=== PATIENT | female | born 1980 | race Caucasian/White ===

== ENCOUNTER 2024-11-09 16:28 | Inpatient (IN) | payer BC, SELFPAY ==
[2024-11-09] MEDS: Nicotine 21 MG PATCH.TD24 TRANSDERMA (17:36)
[2024-11-09] MEDS: Nicotine Polacrilex 2 MG GUM 4 MG BUCCAL ×2 (17:37→20:27)
[2024-11-09] MEDS: Gabapentin 300 MG CAPSULE PO ×2 (18:14→21:33)
[2024-11-09] MEDS: Baclofen 10 MG TABLET PO ×2 (18:14→21:34)
--- NOTE | 2024-11-09 18:29 | PC.ADMIT ---
Kia arrived via stretcher from [facility]. (she is from [place]) She has been boarding in the ED since 11/02/24. She was biba from her sober house after drinking whiskey and getting into arguments with the other residents and reportedly hearing voices. Upon arrival here she is oriented x4, had an irritable edge but was cooperative with skin/safety check. Check was unremarkable. She doesn't feel like she needs to be here at all. She is animated and talkative. Irritable about rules, especially the nonsmoking rule. what are you all trying to do to folks here? While with Dr Sanchez, she did refuse to sign in, denied most of the details in the ED report from [facility], prior to be kicked out of the sober house she reports only using extra gabapentin and baclofen. It made me feel some way that was good, and then they kicked me out . She vigorously offered the name of her addiction counselor Artem Lopez, signed a release for him and requested Dr Sanchez call him. He knows me, all about me, he will vouch for me. She denies any urges to harm self or others and any visual or perceptual disturbances. She vapes nicotine probably the equivalent of 1 ppd. She requests NRT but refused [employer]. She denies any alcohol use since june 2024 and no illicit drug use. She denies any health issues, reports having ADHD. Shortly after Dr Sanchez left the room, she said I want to sign in so I can sign that 3 day thing , this nurse notified Dr Sanchez but he was gone for the day. She is on 15 minute safety checks.
[2024-11-09 20:00] VITALS: BP 121/80; PULSE 105; TEMP 36.4; O2SAT 97
[2024-11-09] MEDS: Propranolol HCL 10 MG TABLET PO (21:34)
[2024-11-09] MEDS: busPIRone HCl 10 MG TABLET PO (21:35)
--- NOTE | 2024-11-09 21:51 | P.CONHOSP_ITS ---
History of Present Illness Data of Consult Service Date: 11/09/24 Requesting physician: Tobias Sanchez Primary Care Provider: Unknown Physician HPI Reason for consult: admission H&P patient is a 44-year-old female originally resides in [place] and was sent to [place] for detox and recovery from alcohol abuse and has been here for 4 months. Patient's past medical history includes tobacco dependence via vaping, alcohol abuse, all vaginal deliveries, fair dentition with a missing root canal in a back molar currently asymptomatic, carpal tunnel syndrome was transferred to [facility] from [facility] after being in a sober house and having a relapse with her alcohol use. patient noted to have a heart rate anywhere from 100-105. Patient states she has been told that she has had a higher heart rate and wonders why. Patient does not have a history of thyroid disorders or cardiac arrhythmias. Patient denies history of murmur. Patient denies current withdrawal symptoms from alcohol. Her last drink was 1 month prior.Patient's particular medical complaints include a persistent dry cough and raspiness or congestion which has improved since patient has stopped vaping. Patient is currently on nicotine replacement therapy. Lung sounds are clear bilaterally to auscultation. Patient denies any sore throat, fever, headache, shortness of breath at rest or with exertion. Patient has not been taking her Claritin and feels this will help her symptoms. Labs are scheduled in the morning and CBC has been added. TSH with reflex already ordered. Will order chest x-ray for baseline noting patient's complaints of congestion and persistent cough with history of nicotine use via vaping. Review of Systems Review of Systems: patient denies any chest pain, shortness of breath at rest or with exertion. Patient denies any abdominal pain, nausea or vomiting. Patient denies any withdrawal symptoms from alcohol use. Patient states her upper respiratory symptoms are improved since she stopped vaping. Patient still has an intermi ttent dry cough. Patient is also having upper nasal congestion which is mild. Patient denies fever, chills or sore throat. Patient denies any issues with constipation or diarrhea. Patient's appetite is healthy and she denies any unexplained weight loss. Patient denies history of eating disorder as well. [facility] Medical History (Updated 11/09/24 @ 22:19 by LILY Lowery) Allergic rhinitis ADHD Alcohol abuse Tobacco dependence Carpal tunnel syndrome Cognitive capacity: Alert and orientated x3 Functional capacity: independent ambulation Patient : No Social History Household Members: Unknown / Unable to assess Housing: Other Do you presently have visiting nurse or other home services: No Patient Tobacco Use Status: Former Tobacco user e-Cigarette/Vaping Use: Currently Using Second Hand Smoke Exposure: Yes Ebola Risk: Travel/Contact With Anyone From Affected Area/s: No Has Patient Experienced Ebola Symptoms: No Meds Allergies Allergy/AdvReac Type Severity Reaction Status Date / Time No Known Allergies Allergy Verified 11/09/24 17:21 Active Medications: Current Medications Acetaminophen (Acetaminophen 325 Mg Tablet) 650 mg PO Q6H PRN PRN Reason: Headache/Pain, Scale 1-10 Al Hydroxide/Mg Hydroxide (Magnesium Hydrox/Alum Hydrox 30 Ml Oral.Susp) 30 ml PO Q6H PRN PRN Reason: Heartburn/Nausea Baclofen (Baclofen 10 Mg Tablet) 10 mg PO BID FOR[facility]LY [facility], [facility] Last Admin: 11/09/24 21:34 Dose: 10 mg Buspirone HCl (Buspirone Hcl 10 Mg Tablet) 10 mg PO BID FOR[facility], [facility] Last Admin: 11/09/24 21:35 Dose: 10 mg Gabapentin (Gabapentin 300 Mg Capsule) 300 mg PO TID FOR[facility], [facility] Last Admin: 11/09/24 21:33 Dose: 300 mg Hydroxyzine HCl (Hydroxyzine Hcl 25 Mg Tablet) 25 mg PO Q6H PRN PRN Reason: mild anxiety Magnesium Hydroxide (Milk Of Magnesia 30 Ml Oral.Susp) 30 ml PO DAILY PRN PRN Reason: Constipation Nicotine (Nicotine 21 Mg Patch.Td24) 21 mg TRANSDERMA DAILY PRN PRN Reason: smoking cessation Last Admin: 11/09/24 17:36 Dose: 21 mg Nicotine Polacrilex (Nicotine Polacrilex 2 Mg Gum) 4 mg BUCCAL Q2H PRN PRN Reason: Nicotine Cravings Last Admin: 11/09/24 20:27 Dose: 4 mg Olanzapine (Olanzapine 5 Mg Tablet) 5 mg PO TID PRN PRN Reason: agitation Propranolol HCl (Propranolol Hcl 10 Mg Tablet) 10 mg PO TID FOR[facility], [facility]; Protocol Last Admin: 11/09/24 21:34 Dose: 10 mg Trazodone HCl (Trazodone Hcl 50 Mg Tablet) 50 mg PO BEDTIME MRX1 PRN PRN Reason: Insomnia Home Medications ?Medication ?Instructions ?Recorded ?Confirmed ?Last Taken ?Type baclofen 10 mg tablet 10 mg PO TID 11/09/24 11/09/24 11/09/24 08:48 History buspirone 10 mg tablet 10 mg PO BID 11/09/24 11/09/24 Unknown History hydroxyzine pamoate 25 mg capsule 25 mg PO BID PRN Anxiety 11/09/24 11/09/24 Unknown History lisdexamfetamine 40 mg capsule 40 mg PO DAILY 11/09/24 11/09/24 Unknown History (Jaspal) nicotine (polacrilex) 2 mg gum 2 mg buccal Q1H 11/09/24 11/09/24 11/09/24 09:38 History olanzapine 5 mg disintegrating 5 mg PO Q6H PRN Agitation 11/09/24 11/09/24 11/08/24 19:53 History tablet olanzapine 5 mg disintegrating 5 mg PO BEDTIME 11/09/24 11/09/24 11/08/24 19:53 History tablet (Zyprexa Zydis) propranolol 10 mg tablet 10 mg PO TID 11/09/24 11/09/24 11/09/24 08:48 History quetiapine 300 mg tablet (Seroquel) 300 mg PO BEDTIME 11/09/24 11/09/24 Unknown History Physical Exam Vital Signs and Narrative: Vital Signs: Last Vital Signs Temp 97.5 F 11/09/24 20:00 Pulse 105 H 11/09/24 20:00 BP 121/80 11/09/24 20:00 Pulse Ox 97 11/09/24 20:00 O2 Del Method Room Air 11/09/24 20:00 Alert and orientated X3, able to give good history. Patient found it slightly difficult to stay sitting, was moving often during the interview. Neuro: CN II-X11 intact, no deficits, visual acuity intact EYES: PERRLA, EOM intact, Conjunctiva pink, sclera nonicteric ENT: hearing intact, no issues with swallowing, uvula midline, lips moist, nares patent no epistaxis, no thrush, oral pharyngeal airway without exudate or redness. sinuses nontender. Cardiac: S1 S2 RRR, no murmur, no JVD, no edema in Lower ext Pulmonary: lungs Diminished at the bases, no adventitious sounds noted. no stridor or wheezing heard Abdominal: BS active in all 4 quadrants, no guarding, tenderness, rebounding MSK: strength 5/5 upper and lower extremities : no CVA tenderness no bladder distension Extremities: no edema in lower extremities, PT and DP pulses palpable +2 Psych: mood mildly anxious, judgement and insight good skin: intact Results ECG Prior ECG tracings: not available for review Assessment and Plan (1) Tachycardia: Status: Acute Plan Patient is a 44-year-old female originally resides in [place] and was sent to [place] for detox and recovery from alcohol abuse and has been here for 4 months. Patient's past medical history includes tobacco dependence via vaping, chronic cough, alcohol abuse, allergic rhinitis, all vaginal deliveries, fair dentition with a missing root canal in a back molar currently asymptomatic, carpal tunnel syndrome Tachycardic - EKG pending - TSH with reflex. Magnesium pending - Vital signs otherwise stable - Patient denies any current chest pain or symptoms. - Patient has been told for some time that her heart rate is usually above 100. - Apical rate is regular, no murmur on exam - hospitalist group will follow up tomorrow on EKG and labs - patient does not require telemetry or transfer to [facility] Tobacco dependence/ vaping with chronic cough and congestion - Nicotine replacement therapy in place - Completing chest x-ray in the a.m. for noted persistent cough. No current indication for FLU/RSV/COVID testing - Resuming Claritin to help with congestion if permitted by Psychiatry -Sinus exam negative, low suspicion for sinus infection or pharyngitis - Patient counseled on the continued benefits of vaping/tobacco cessation - guaifenesin cough syrup p.r.n. Allergic rhinitis -Continuing Claritin, psychiatrist to review please DC if not permitted - chest x-ray pending for the morning, no current indication to do flu/RSV /COVID testing History of alcohol abuse - per Psychiatry - recommend thiamine and folic acid daily Carpal tunnel syndrome - chronic condition with report of bilateral hand pain - possible associated osteoarthritis - patient is on gabapentin - adding Motrin 400 mg q.6 p.r.n. for moderate pain - Adding CRP and ESR to a.m. blood work We thank you for this consultation and hospitalist will follow up tomorrow regarding chest x-ray, labs and patient's clinical presentation. It is likely after tomorrow with the hospitalist group will be able to sign off.
[2024-11-09] MEDS: traZODone HCL 50 MG TABLET PO (23:15)
[2024-11-10 08:00] VITALS: BP 109/55; PULSE 76; RESP 16; TEMP 36.6; O2SAT 98
[2024-11-10 08:32] LABS: MANUAL DIFF FLAG NO
[2024-11-10 08:34] LABS: Basophils Absolute Auto 0.1 X10*3/uL (0.0-0.2); Basophils Percent Auto 0.9 % (0-2); Eosinophils Absolute Auto 0.8 X10*3/uL (0.0-0.4); Eosinophils Percent Auto 11.9 % (0-4); Hematocrit 37.3 % (37.0-47.0); Hemoglobin 12.5 g/dl (12.0-16.0); Imm Gran Abs Auto 0.03 X10*3/uL (0.00-0.03); Imm Gran Pct Auto 0.5 % (0.0-0.4); Lymphocytes Absolute Auto 2.2 X10*3/uL (1.2-4.9); Lymphocytes Percent Auto 34.7 % (20-40); Mean Corpuscular HGB Conc 33.5 g/dl (31.0-35.0); Mean Corpuscular Hemoglobin 30.6 pg (27.0-33.0); Mean Corpuscular Volume 91.2 fL (80.0-98.0); Mean Platelet Volume 9.5 fL (9.4-12.3); Monocytes Absolute Auto 0.8 X10*3/uL (0.1-1.2); Monocytes Percent Auto 11.8 % (2-11); Neutrophils Absolute Auto 2.6 x10*3/uL (2.0-8.3); Neutrophils Percent Auto 40.2 % (45-73); Platelet Count 376 X10*3/uL (160-400); Red Blood Count 4.09 X10*6/uL (4.20-5.50); Red Cell Distribution Width 14.8 % (11.0-16.0); White Blood Count 6.4 X10*3/uL (4.8-10.8)
[2024-11-10] MEDS: busPIRone HCl 10 MG TABLET PO ×2 (08:47→20:31)
[2024-11-10] MEDS: Loratadine 10 MG TABLET PO (08:47)
[2024-11-10] MEDS: Gabapentin 300 MG CAPSULE PO ×2 (08:47→13:49)
[2024-11-10] MEDS: Nicotine 21 MG PATCH.TD24 TRANSDERMA (08:48)
[2024-11-10] MEDS: Nicotine Polacrilex 2 MG GUM 4 MG BUCCAL ×3 (08:48→18:03)
[2024-11-10] MEDS: Baclofen 10 MG TABLET PO ×2 (08:49→20:31)
[2024-11-10 08:50] LABS: Estimated Average Glucose 105 mg/dL; Hemoglobin A1C 114.0526 umol/L; Hemoglobin A1c % 5.3 % (<6.0)
[2024-11-10 08:57] LABS: Magnesium 1.9 mg/dL (1.6-2.6)
[2024-11-10 09:00] VITALS: PULSE 72
[2024-11-10 09:04] LABS: Alanine Aminotransferase 24 U/L (0-31); Albumin Level 4.4 g/dL (3.5-5.0); Anion Gap 13 (12-20); Aspartate Amino Transferase 26 U/L (5-31); Bilirubin Total 0.2 mg/dL (0.0-1.0); Blood Urea Nitrogen 16 mg/dL (9-16); Carbon Dioxide 24 mmol/L (22-29); Chloride 106 mmol/L (96-108); Cholesterol 178 mg/dL (<200); Estimated Glomerular Filt Rate > 60; Glucose Random 135 mg/dL (60-115); HDL Cholesterol 64 mg/dL (>40); Potassium 4.5 mmol/L (3.3-5.1); Sodium 138 mmol/L (135-145); Total Protein 7.2 g/dL (6.5-8.0); Triglycerides 130 mg/dL (<150)
[2024-11-10 09:05] LABS: Alkaline Phosphatase 56 U/L (39-117); LDL Cholesterol Calculated 88 mg/dL (<100)
[2024-11-10 09:14] LABS: TSH reflex Free T4 4.38 uIU/mL (0.32-4.0)
[2024-11-10 09:50] LABS: Free T4 (Free Thyroxine) 0.92 ng/dL (0.71-1.85)
[2024-11-10] MEDS: Acetaminophen 325 MG TABLET 650 MG PO (11:15)
--- NOTE | 2024-11-10 11:39 | HO.PSYADMNOT ---
HPI Date of Service: 11/10/24 Chief Complaint: Unspecified psychosis Sources of Information: patient interviewed, chart reviewed and crisis/core team assessment reviewed HPI Subjective Notes: Joe Warning, Conditional Voluntary, 3 Day and Section 12B Narrative: Patient is a 44-year-old female, originally from [place], with history of depression, anxiety, ADHD, methamphetamine and alcohol use disorder who presents for disorganized behavior in the face of abusing baclofen and gabapentin. Pt reports she was at sober living, having been there only 2 days and feeling stressed out; pt reports she was taking more Baclofen and gabapentin then prescribed since it made her feel good. Pt says the TV was on loudly and went down and told peers that it sounds like kids crying...and i need to get to bed... She frustrated that staff reported she said she was hearing kids screaming...no, i was not hearing things or seeing things...i said it sounds like esteves word 'sounds like'... She says it's absurd that she is in the hospital. She denies that she was jumping on the bed or aggressively throwing things; she said maybe she slammed the door but she did not mean to be loud. Patient denies any history of AVH or manic type episodes or behaviors other than in the context of substance abuse. Patient did however acknowledge that perhaps feeling tired, overdosing on baclofen and gabapentin, she may have been more dysregulated and she realize. Patient wants to continue on current medication regimen. Denies trauma history pt seen on 11/09/24 Past Psychiatric History: only hx of hospitalization for detox Medical Evaluation Reviewed: Hospitalist Silver Pending [facility] Medical History (Updated 11/11/24 @ 09:27 by Tobias Sanchez MD) MDD (major depressive disorder) Allergic rhinitis ADHD Alcohol abuse Tobacco dependence Carpal tunnel syndrome Family History: Deferred Social History: 3 kids completed H.S some college from [employer] but came up to [place] to be in a sober living Substance History: Mainly alcohol, daily since last fall and Methamphetamines used to be 3 days a week, however pt has been sober for 4 months; 4 weeks used alcohol for one day... Trauma History: Denies Diagnostics Vital Signs (24Hr): Vital Signs - 24 hr 11/09/24 20:00 Temperature 97.5 F Pulse Rate 105 H Blood Pressure 121/80 Pulse Oximetry 97 Oxygen Delivery Method Room Air Labs 11/10/24 08:16 11/10/24 08:16 Labs: Laboratory Results - last 48 hr 11/10/24 08:16 WBC 6.4 RBC 4.09 L Hgb 12.5 Hct 37.3 MCV 91.2 MCH 30.6 MCHC 33.5 RDW 14.8 Plt Count 376 MPV 9.5 Immature Gran % (Auto) 0.5 H Neut % (Auto) 40.2 L Lymph % (Auto) 34.7 [place] % (Auto) 11.8 H Eos % (Auto) 11.9 H Baso % (Auto) 0.9 Lymph # (Auto) 2.2 [place] # (Auto) 0.8 Eos # (Auto) 0.8 H Baso # (Auto) 0.1 Abs Immat Gran (auto) 0.03 Absolute Neuts (auto) 2.6 Absolute Nucleated RBC 0.000 Nucleated RBC % (auto) 0.0 Sodium 138 Potassium 4.5 Chloride 106 Carbon Dioxide 24 Anion Gap 13 BUN 16 Creatinine 0.62 Estim Creat Clear Calc TNP Estimated GFR > 60 Random Glucose 135 H Estimat Average Glucose 105 Hemoglobin A1c % 5.3 Calcium 9.0 Magnesium 1.9 Total Bilirubin 0.2 AST 26 ALT 24 Alkaline Phosphatase 56 Total Protein 7.2 Albumin 4.4 Triglycerides 130 Cholesterol 178 LDL Cholesterol, Calc 88 HDL Cholesterol 64 TSH 4.38 H Free T4 0.92 Meds/Allergies Meds Home Medications ?Medication ?Instructions ?Recorded ?Confirmed ?Type baclofen 10 mg tablet 10 mg PO TID 11/09/24 11/09/24 History buspirone 10 mg tablet 10 mg PO BID 11/09/24 11/09/24 History hydroxyzine pamoate 25 mg capsule 25 mg PO BID PRN Anxiety 11/09/24 11/09/24 History lisdexamfetamine 40 mg capsule 40 mg PO DAILY 11/09/24 11/09/24 History (Vyvanse) nicotine (polacrilex) 2 mg gum 2 mg buccal Q1H 11/09/24 11/09/24 History olanzapine 5 mg disintegrating 5 mg PO Q6H PRN Agitation 11/09/24 11/09/24 History tablet olanzapine 5 mg disintegrating 5 mg PO BEDTIME 11/09/24 11/09/24 History tablet (Zyprexa Zydis) propranolol 10 mg tablet 10 mg PO TID 11/09/24 11/09/24 History quetiapine 300 mg tablet (Seroquel) 300 mg PO BEDTIME 11/09/24 11/09/24 History Allergies Allergies Allergy/AdvReac Type Severity Reaction Status Date / Time No Known Allergies Allergy Verified 11/09/24 17:21 Mental Status Exam Mental Status Exam Narrative: Pt is alert and oriented; behavior is cooperative, friendly and calm; patient is not in distress; dressed in casual attire with unkempt hair but adequate hygiene; mood is described as ok and affect congruent; eye contact appropriate; Speech is normal rate, volume and prosody and not pressured; no psychomotor agitation/retardation present; thought process is a little disorganized but goal directed; Thought content is on wrongly sent to hospital, getting back to sober living; otherwise pertinent to relevant topics and without any delusional content, paranoid ideations or grandiosity; denies any SI/HI. Denies AVH and there is no evidence of perceptual disturbance. Patients insight and judgment impaired. Assessment & Plan Assessment & Plan (1) Moira: Status: Acute Code(s): F30.9 - Manic episode, unspecified (2) ADHD: Status: Acute Code(s): F90.9 - Attention-deficit hyperactivity disorder, unspecified type (3) Carpal tunnel syndrome: Status: Acute Code(s): G56.00 - Carpal tunnel syndrome, unspecified upper limb (4) MDD (major depressive disorder): Status: Acute Code(s): F32.9 - Major depressive disorder, single episode, unspecified Plan Patient is a 44-year-old female, originally from [place], with history of depression, anxiety, ADHD, methamphetamine and alcohol use disorder who presents for disorganized behavior in the face of abusing baclofen and gabapentin. Pt reports she was at sober living, having been there only 2 days and feeling stressed out; pt reports she was taking more Baclofen and gabapentin then prescribed since it made her feel good. Pt says the TV was on loudly and went down and told peers that it sounds like kids crying...and i need to get to bed... She frustrated that staff reported she said she was hearing kids screaming...no, i was not hearing things or seeing things...i said it sounds like esteves word 'sounds like'... She says it's absurd that she is in the hospital. She denies that she was jumping on the bed or aggressively throwing things; she said maybe she slammed the door but she did not mean to be loud. Patient denies any history of AVH or manic type episodes or behaviors other than in the context of substance abuse. Patient did however acknowledge that perhaps feeling tired, overdosing on baclofen and gabapentin, she may have been more dysregulated and she realize. Patient wants to continue on current medication regimen. Denies trauma history; no recent drug/alcohol use. formulation/clinical reasoning: pt somewhat disorganized in speech, easily confused. Seems that perhaps she got dysregulated due to either excessive baclofen/gabapentin or w/drawal from it...which seems to be winding down at this point. Will treat for w/drawal and monitor Plan: cv q15min restart Baclofen 10mg BID to help with withdrawal BUT will then taper and dc (baclophen was using for used etoh cravings) restart Gabapentin 300mg TID to help w/ withdrawal BUT will taper and dc (Gabapentin for carpal tunnel) restart Zoloft and titrate (this was helping w/ depression/anxiety but recently changed to Cymbalta to cover for neuropathic pain; zoloft restarted in ED) Consider Naltrexone which pt said helped cravings Adderall XR 30mg (vyvanse not on formulary) Continue home med Seroqel 300mg qhs seek collateral Patient educated on: diagnosis, medication risk/benefits and substance abuse Informed Consent: understands and further education needed Reason for continued inpatient stay Substantial Risk for: rapid decompensation Statement Statement: I have reviewed the history and physical and performed a pertinent examination on my patient. No changes have occurred unless specified. If the History and Physical was not performed prior to admission, the Hospitalist's service will be consulted for completing the admission physical. Time Spent With Patient Time: Total time managing care of this patient today ____ minutes.
--- NOTE | 2024-11-10 12:51 | PM.EVENT ---
Event Note Date of Service: 11/10/24 Event Note: Patient was seen for tachycardia, no anemia noted on lab work, Chem panel within normal limits. No further vital signs recorded. If tachycardia persists please notify medical team. Based on overall clinical picture no further workup is warranted at this time. Time Spent With Patient Time: Total time managing care of this patient today ____ minutes.
[2024-11-10] MEDS: Ibuprofen 600 MG TABLET PO (13:45)
[2024-11-10] MEDS: Sertraline HCL 50 MG TABLET PO (13:45)
[2024-11-10 15:09] VITALS: BP 104/58; PULSE 72
[2024-11-10] MEDS: hydrOXYzine HCL 25 MG TABLET PO (15:43)
[2024-11-10 20:00] VITALS: BP 147/87; PULSE 108; RESP 16; TEMP 36.6; O2SAT 98
[2024-11-10] MEDS: QUEtiapine Fumarate 300 MG TABLET PO (20:32)
[2024-11-10] MEDS: Propranolol HCL 10 MG TABLET PO (20:32)
[2024-11-11 07:44] VITALS: BP 106/56; PULSE 93; TEMP 36.5; O2SAT 99
[2024-11-11] MEDS: busPIRone HCl 10 MG TABLET PO ×2 (08:30→20:53)
[2024-11-11] MEDS: Loratadine 10 MG TABLET PO (08:30)
[2024-11-11] MEDS: Sertraline HCL 50 MG TABLET PO (08:30)
[2024-11-11] MEDS: Baclofen 10 MG TABLET PO ×2 (08:31→20:53)
[2024-11-11] MEDS: Gabapentin 300 MG CAPSULE PO ×3 (08:31→20:54)
[2024-11-11] MEDS: Dextroamphetamine/Amphetamine XR 10 MG CAP.ER.24H 30 MG PO (09:42)
[2024-11-11] MEDS: Nicotine 21 MG PATCH.TD24 TRANSDERMA (09:43)
[2024-11-11] MEDS: Nicotine Polacrilex 2 MG GUM 4 MG BUCCAL ×3 (09:43→18:19)
--- NOTE | 2024-11-11 10:39 | HO.PSYCHPN ---
Subjective Subjective Date of Service: 11/11/24 Reason For Visit: Unspecified psychosis Subjective Notes: Conditional Voluntary and 3 Day Interim History: Patient was seen and discussed in rounds today. Records and plans were reviewed. She has been doing better with no depression and anxiety. Attending groups. Some lability reported. Refused gabapentin and states that the Inderal sometimes makes her dizzy. No signs of these this morning. No SI. No changes were made today. Review of Systems Review of Systems Recent reports of dizziness Yes all other systems are reviewed and are negative Mental Status Exam Mental Status Exam Narrative: In today's visit she is alert, oriented and pleasant. Normal speech. Good eye contact. Affect is appropriate and varied. No acute signs of psychosis. No signs of hypomania or lability. No SI. Cognitively intact. Judgment is intact Diagnostics Vital Signs (24Hr): Vital Signs - 24 hr 11/10/24 15:09 11/10/24 20:00 11/11/24 07:44 Temperature 98 F 97.7 F Pulse Rate 72 108 H 93 Respiratory Rate 16 Blood Pressure 104/58 L 147/87 H 106/56 L Pulse Oximetry 98 99 Oxygen Delivery Method Room Air Room Air Labs 11/10/24 08:16 11/10/24 08:16 Labs: Laboratory Results - last 48 hr 11/10/24 08:16 WBC 6.4 RBC 4.09 L Hgb 12.5 Hct 37.3 MCV 91.2 MCH 30.6 MCHC 33.5 RDW 14.8 Plt Count 376 MPV 9.5 Immature Gran % (Auto) 0.5 H Neut % (Auto) 40.2 L Lymph % (Auto) 34.7 [place] % (Auto) 11.8 H Eos % (Auto) 11.9 H Baso % (Auto) 0.9 Lymph # (Auto) 2.2 [place] # (Auto) 0.8 Eos # (Auto) 0.8 H Baso # (Auto) 0.1 Abs Immat Gran (auto) 0.03 Absolute Neuts (auto) 2.6 Absolute Nucleated RBC 0.000 Nucleated RBC % (auto) 0.0 Sodium 138 Potassium 4.5 Chloride 106 Carbon Dioxide 24 Anion Gap 13 BUN 16 Creatinine 0.62 Estim Creat Clear Calc TNP Estimated GFR > 60 Random Glucose 135 H Estimat Average Glucose 105 Hemoglobin A1c % 5.3 Calcium 9.0 Magnesium 1.9 Total Bilirubin 0.2 AST 26 ALT 24 Alkaline Phosphatase 56 Total Protein 7.2 Albumin 4.4 Triglycerides 130 Cholesterol 178 LDL Cholesterol, Calc 88 HDL Cholesterol 64 TSH 4.38 H Free T4 0.92 Medications Medications Current Medications Acetaminophen (Acetaminophen 325 Mg Tablet) 650 mg PO Q6H PRN PRN Reason: Headache/Pain, Scale 1-10 Last Admin: 11/10/24 11:15 Dose: 650 mg Al Hydroxide/Mg Hydroxide (Magnesium Hydrox/Alum Hydrox 30 Ml Oral.Susp) 30 ml PO Q6H PRN PRN Reason: Heartburn/Nausea Amphetamine/Dextroamphetamine (Dextroamphetamine/Amphetamine Xr 10 Mg Cap.Er.24h) 30 mg PO DAILY [facility] Last Admin: 11/11/24 09:42 Dose: 30 mg Baclofen (Baclofen 10 Mg Tablet) 10 mg PO BID [facility] Last Admin: 11/11/24 08:31 Dose: 10 mg Buspirone HCl (Buspirone Hcl 10 Mg Tablet) 10 mg PO BID [facility] Last Admin: 11/11/24 08:30 Dose: 10 mg Gabapentin (Gabapentin 300 Mg Capsule) 300 mg PO TID [facility] Last Admin: 11/11/24 08:31 Dose: 300 mg Guaifenesin (Guaifenesin 200 Mg/10 Ml 10 Ml Liquid) 10 ml PO Q6H PRN PRN Reason: Cough Hydroxyzine HCl (Hydroxyzine Hcl 25 Mg Tablet) 25 mg PO Q6H PRN PRN Reason: mild anxiety Last Admin: 11/10/24 15:43 Dose: 25 mg Ibuprofen (Ibuprofen 600 Mg Tablet) 600 mg PO Q8H PRN PRN Reason: wrist/hand pain Last Admin: 11/10/24 13:45 Dose: 600 mg Lidocaine (Lidocaine 4 % Patch Adh..Patch) 1 patch TRANSDERMA DAILY PRN; Protocol PRN Reason: lower back pain Loratadine (Loratadine 10 Mg Tablet) 10 mg PO DAILY [facility] Last Admin: 11/11/24 08:30 Dose: 10 mg Magnesium Hydroxide (Milk Of Magnesia 30 Ml Oral.Susp) 30 ml PO DAILY PRN PRN Reason: Constipation Nicotine (Nicotine 21 Mg Patch.Td24) 21 mg TRANSDERMA DAILY PRN PRN Reason: smoking cessation Last Admin: 11/11/24 09:43 Dose: 21 mg Nicotine Polacrilex (Nicotine Polacrilex 2 Mg Gum) 4 mg BUCCAL Q2H PRN PRN Reason: Nicotine Cravings Last Admin: 11/11/24 09:43 Dose: 4 mg Olanzapine (Olanzapine 5 Mg Tablet) 5 mg PO TID PRN PRN Reason: agitation Propranolol HCl (Propranolol Hcl 10 Mg Tablet) 10 mg PO TID [facility]; Protocol Last Admin: 11/11/24 08:27 Dose: Not Given Quetiapine Fumarate (Quetiapine Fumarate 300 Mg Tablet) 300 mg PO BEDTIME [facility] Last Admin: 11/10/24 20:32 Dose: 300 mg Sertraline HCl (Sertraline Hcl 100 Mg Tablet) 100 mg PO DAILY [facility] Trazodone HCl (Trazodone Hcl 50 Mg Tablet) 50 mg PO BEDTIME MRX1 PRN PRN Reason: Insomnia Last Admin: 11/09/24 23:15 Dose: 50 mg Allergies Allergies Allergy/AdvReac Type Severity Reaction Status Date / Time No Known Allergies Allergy Verified 11/09/24 17:21 Assessment & Plan Assessment & Plan (1) Moira: Status: Acute Code(s): F30.9 - Manic episode, unspecified (2) ADHD: Status: Acute Code(s): F90.9 - Attention-deficit hyperactivity disorder, unspecified type (3) Carpal tunnel syndrome: Status: Acute Code(s): G56.00 - Carpal tunnel syndrome, unspecified upper limb (4) MDD (major depressive disorder): Status: Acute Code(s): F32.9 - Major depressive disorder, single episode, unspecified Plan Patient is a 44-year-old female, originally from [place], with history of depression, anxiety, ADHD, methamphetamine and alcohol use disorder who presents for disorganized behavior in the face of abusing baclofen and gabapentin. Pt reports she was at sober living, having been there only 2 days and feeling stressed out; pt reports she was taking more Baclofen and gabapentin then prescribed since it made her feel good. Pt says the TV was on loudly and went down and told peers that it sounds like kids crying...and i need to get to bed... She frustrated that staff reported she said she was hearing kids screaming...no, i was not hearing things or seeing things...i said it sounds like esteves word 'sounds like'... She says it's absurd that she is in the hospital. She denies that she was jumping on the bed or aggressively throwing things; she said maybe she slammed the door but she did not mean to be loud. Patient denies any history of AVH or manic type episodes or behaviors other than in the context of substance abuse. Patient did however acknowledge that perhaps feeling tired, overdosing on baclofen and gabapentin, she may have been more dysregulated and she realize. Patient wants to continue on current medication regimen. Denies trauma history; no recent drug/alcohol use. formulation/clinical reasoning: pt somewhat disorganized in speech, easily confused. Seems that perhaps she got dysregulated due to either excessive baclofen/gabapentin or w/drawal from it...which seems to be winding down at this point. Will treat for w/drawal and monitor Plan: cv q15min restart Baclofen 10mg BID to help with withdrawal BUT will then taper and dc (baclophen was using for used etoh cravings) restart Gabapentin 300mg TID to help w/ withdrawal BUT will taper and dc (Gabapentin for carpal tunnel) restart Zoloft and titrate (this was helping w/ depression/anxiety but recently changed to Cymbalta to cover for neuropathic pain; zoloft restarted in ED) Consider Naltrexone which pt said helped cravings Adderall XR 30mg (vyvanse not on formulary) Continue home med Seroqel 300mg qhs seek collateral 11/11: Continue current regimen and plans. Observe for dizziness secondary to Inderal Reason for continued inpatient stay Substantial Risk for: med/psych decompensation Time Spent With Patient Time: Total time managing care of this patient today ____ minutes.
[2024-11-11] MEDS: hydrOXYzine HCL 25 MG TABLET PO (12:58)
[2024-11-11 14:51] VITALS: PULSE 100
[2024-11-11] MEDS: Propranolol HCL 10 MG TABLET PO (14:51)
[2024-11-11 20:00] VITALS: BP 141/90; PULSE 110; RESP 16; TEMP 36.8; O2SAT 98
[2024-11-11] MEDS: traZODone HCL 50 MG TABLET PO (21:17)
[2024-11-11] MEDS: QUEtiapine Fumarate 300 MG TABLET PO ×2 (22:48→22:50)
[2024-11-12 08:22] VITALS: BP 179/79; PULSE 109; TEMP 36.4; O2SAT 99
--- NOTE | 2024-11-12 08:47 | HO.PSYCHPN ---
Subjective Subjective Date of Service: 11/12/24 Reason For Visit: Unspecified psychosis Subjective Notes: Conditional Voluntary and 3 Day Interim History: Patient was seen and discussed in rounds today. Records and plans were reviewed. She was started on Adderall 30 mg however she states that on that dose she was hyperverbal, irritable, anxious and would like to go down and titrate up. I reduced her to 10 mg today to be re-evaluated tomorrow. Previously she had been on Vyvanse. She also requested in addition of vitamin-C and Co Q10 which she is used to taking and I ordered both. She continues to be disorganized and hyperverbal. No SI. No other changes were made Review of Systems Review of Systems Yes all other systems are reviewed and are negative Mental Status Exam Mental Status Exam Narrative: In today's visit she is alert, oriented and pleasant. Normal speech. Good eye contact. Affect is appropriate and varied. No acute signs of psychosis. No signs of hypomania or lability. No SI. Cognitively intact. Judgment is intact Diagnostics Vital Signs (24Hr): Vital Signs - 24 hr 11/11/24 14:51 11/11/24 20:00 11/12/24 08:22 Temperature 98.2 F 97.5 F Pulse Rate 100 110 H 109 H Respiratory Rate 16 Blood Pressure 141/90 H 179/79 H Pulse Oximetry 98 99 Oxygen Delivery Method Room Air Room Air Labs 11/10/24 08:16 11/10/24 08:16 Labs: Laboratory Results - last 48 hr 11/10/24 08:16 Sodium 138 Potassium 4.5 Chloride 106 Carbon Dioxide 24 Anion Gap 13 BUN 16 Creatinine 0.62 Estim Creat Clear Calc TNP Estimated GFR > 60 Random Glucose 135 H Estimat Average Glucose 105 Hemoglobin A1c % 5.3 Calcium 9.0 Magnesium 1.9 Total Bilirubin 0.2 AST 26 ALT 24 Alkaline Phosphatase 56 Total Protein 7.2 Albumin 4.4 Triglycerides 130 Cholesterol 178 LDL Cholesterol, Calc 88 HDL Cholesterol 64 TSH 4.38 H Free T4 0.92 Medications Medications Current Medications Acetaminophen (Acetaminophen 325 Mg Tablet) 650 mg PO Q6H PRN PRN Reason: Headache/Pain, Scale 1-10 Last Admin: 11/10/24 11:15 Dose: 650 mg Al Hydroxide/Mg Hydroxide (Magnesium Hydrox/Alum Hydrox 30 Ml Oral.Susp) 30 ml PO Q6H PRN PRN Reason: Heartburn/Nausea Amphetamine/Dextroamphetamine (Dextroamphetamine/Amphetamine Xr 10 Mg Cap.Er.24h) 10 mg PO DAILY [facility] Ascorbic Acid (Ascorbic Acid 500 Mg Tablet) 500 mg PO DAILY [facility] Baclofen (Baclofen 10 Mg Tablet) 10 mg PO BID [facility] Last Admin: 11/11/24 20:53 Dose: 10 mg Buspirone HCl (Buspirone Hcl 10 Mg Tablet) 10 mg PO BID [facility] Last Admin: 11/11/24 20:53 Dose: 10 mg Gabapentin (Gabapentin 300 Mg Capsule) 300 mg PO TID [facility] Last Admin: 11/11/24 20:54 Dose: 300 mg Guaifenesin (Guaifenesin 200 Mg/10 Ml 10 Ml Liquid) 10 ml PO Q6H PRN PRN Reason: Cough Hydroxyzine HCl (Hydroxyzine Hcl 25 Mg Tablet) 25 mg PO Q6H PRN PRN Reason: mild anxiety Last Admin: 11/11/24 12:58 Dose: 25 mg Ibuprofen (Ibuprofen 600 Mg Tablet) 600 mg PO Q8H PRN PRN Reason: wrist/hand pain Last Admin: 11/10/24 13:45 Dose: 600 mg Lidocaine (Lidocaine 4 % Patch Adh..Patch) 1 patch TRANSDERMA DAILY PRN; Protocol PRN Reason: lower back pain Loratadine (Loratadine 10 Mg Tablet) 10 mg PO DAILY [facility] Last Admin: 11/11/24 08:30 Dose: 10 mg Magnesium Hydroxide (Milk Of Magnesia 30 Ml Oral.Susp) 30 ml PO DAILY PRN PRN Reason: Constipation Nicotine (Nicotine 21 Mg Patch.Td24) 21 mg TRANSDERMA DAILY PRN PRN Reason: smoking cessation Last Admin: 11/11/24 09:43 Dose: 21 mg Nicotine Polacrilex (Nicotine Polacrilex 2 Mg Gum) 4 mg BUCCAL Q2H PRN PRN Reason: Nicotine Cravings Last Admin: 11/11/24 18:19 Dose: 4 mg Olanzapine (Olanzapine 5 Mg Tablet) 5 mg PO TID PRN PRN Reason: agitation Propranolol HCl (Propranolol Hcl 10 Mg Tablet) 10 mg PO TID [facility]; Protocol Last Admin: 11/11/24 20:55 Dose: Not Given Quetiapine Fumarate (Quetiapine Fumarate 300 Mg Tablet) 300 mg PO BEDTIME [facility] Last Admin: 11/11/24 22:50 Dose: 300 mg Sertraline HCl (Sertraline Hcl 100 Mg Tablet) 100 mg PO DAILY [facility] Trazodone HCl (Trazodone Hcl 50 Mg Tablet) 50 mg PO BEDTIME MRX1 PRN PRN Reason: Insomnia Last Admin: 11/11/24 21:17 Dose: 50 mg Allergies Allergies Allergy/AdvReac Type Severity Reaction Status Date / Time No Known Allergies Allergy Verified 11/09/24 17:21 Assessment & Plan Assessment & Plan (1) Moira: Status: Acute Code(s): F30.9 - Manic episode, unspecified (2) ADHD: Status: Acute Code(s): F90.9 - Attention-deficit hyperactivity disorder, unspecified type (3) Carpal tunnel syndrome: Status: Acute Code(s): G56.00 - Carpal tunnel syndrome, unspecified upper limb (4) MDD (major depressive disorder): Status: Acute Code(s): F32.9 - Major depressive disorder, single episode, unspecified Plan Patient is a 44-year-old female, originally from [place], with history of depression, anxiety, ADHD, methamphetamine and alcohol use disorder who presents for disorganized behavior in the face of abusing baclofen and gabapentin. Pt reports she was at sober living, having been there only 2 days and feeling stressed out; pt reports she was taking more Baclofen and gabapentin then prescribed since it made her feel good. Pt says the TV was on loudly and went down and told peers that it sounds like kids crying...and i need to get to bed... She frustrated that staff reported she said she was hearing kids screaming...no, i was not hearing things or seeing things...i said it sounds like esteves word 'sounds like'... She says it's absurd that she is in the hospital. She denies that she was jumping on the bed or aggressively throwing things; she said maybe she slammed the door but she did not mean to be loud. Patient denies any history of AVH or manic type episodes or behaviors other than in the context of substance abuse. Patient did however acknowledge that perhaps feeling tired, overdosing on baclofen and gabapentin, she may have been more dysregulated and she realize. Patient wants to continue on current medication regimen. Denies trauma history; no recent drug/alcohol use. formulation/clinical reasoning: pt somewhat disorganized in speech, easily confused. Seems that perhaps she got dysregulated due to either excessive baclofen/gabapentin or w/drawal from it...which seems to be winding down at this point. Will treat for w/drawal and monitor Plan: cv q15min restart Baclofen 10mg BID to help with withdrawal BUT will then taper and dc (baclophen was using for used etoh cravings) restart Gabapentin 300mg TID to help w/ withdrawal BUT will taper and dc (Gabapentin for carpal tunnel) restart Zoloft and titrate (this was helping w/ depression/anxiety but recently changed to Cymbalta to cover for neuropathic pain; zoloft restarted in ED) Consider Naltrexone which pt said helped cravings Adderall XR 30mg (vyvanse not on formulary) Continue home med Seroqel 300mg qhs seek collateral 11/11: Continue current regimen and plans. Observe for dizziness secondary to Inderal 11/12: Continue current regimen and plans. Decreased Adderall to 10 mg. Added vitamin-C and Co Q10 Patient educated on: medication risk/benefits Reason for continued inpatient stay Substantial Risk for: med/psych decompensation Time Spent With Patient Time: Total time managing care of this patient today ____ minutes.
[2024-11-12] MEDS: Sertraline HCL 100 MG TABLET PO (09:14)
[2024-11-12] MEDS: Gabapentin 300 MG CAPSULE PO ×3 (09:14→20:37)
[2024-11-12] MEDS: busPIRone HCl 10 MG TABLET PO ×2 (09:14→20:37)
[2024-11-12] MEDS: Baclofen 10 MG TABLET PO ×2 (09:15→20:37)
[2024-11-12] MEDS: Ascorbic Acid 500 MG TABLET PO (09:15)
[2024-11-12] MEDS: Loratadine 10 MG TABLET PO (09:15)
[2024-11-12] MEDS: Dextroamphetamine/Amphetamine XR 10 MG CAP.ER.24H PO (09:15)
[2024-11-12] MEDS: Propranolol HCL 10 MG TABLET PO ×2 (09:16→15:45)
[2024-11-12] MEDS: Nicotine 21 MG PATCH.TD24 TRANSDERMA (11:20)
[2024-11-12] MEDS: Nicotine Polacrilex 2 MG GUM 4 MG BUCCAL ×3 (11:21→18:30)
[2024-11-12 15:45] VITALS: BP 142/99; PULSE 113
[2024-11-12 20:00] VITALS: BP 133/78; PULSE 94; TEMP 36.5; O2SAT 99
[2024-11-12] MEDS: guaiFENesin 200 MG/10 ML 10 ML LIQUID PO (20:32)
[2024-11-12] MEDS: QUEtiapine Fumarate 300 MG TABLET PO (20:40)
[2024-11-12] MEDS: Ibuprofen 600 MG TABLET PO (20:40)
[2024-11-13 08:00] VITALS: BP 103/57; PULSE 86; TEMP 36.4; O2SAT 99
[2024-11-13] MEDS: Gabapentin 300 MG CAPSULE PO ×2 (08:54→20:50)
[2024-11-13] MEDS: Baclofen 10 MG TABLET PO (08:54)
[2024-11-13] MEDS: Sertraline HCL 100 MG TABLET PO (08:54)
[2024-11-13] MEDS: Ascorbic Acid 500 MG TABLET PO (08:54)
[2024-11-13] MEDS: Ibuprofen 600 MG TABLET PO ×2 (08:55→20:50)
[2024-11-13] MEDS: busPIRone HCl 10 MG TABLET PO ×2 (08:55→20:51)
[2024-11-13] MEDS: Dextroamphetamine/Amphetamine XR 10 MG CAP.ER.24H PO (08:55)
[2024-11-13] MEDS: Loratadine 10 MG TABLET PO (08:55)
--- NOTE | 2024-11-13 09:32 | P.PNPSI_ITS ---
Subjective Subjective Date of Service: 11/13/24 Reason For Visit: Unspecified psychosis Interim History: met with patient; discussed with team pt reports good mood, though says she's frustrated with being on the unit. She shares that adderall 30mg was too much and made her feel hyperactive, but reduction to 10mg is working. Pt very much wants discharge and has a 3 day notice coming due. Mental Status Exam Mental Status Exam Narrative: Pt is alert and oriented; behavior is cooperative, friendly and calm and not hyperactive; patient is not in distress; dressed in casual attire with adequate hygiene and grooming; mood is described as good and affect congruent; eye contact appropriate; Speech is normal rate, volume and prosody and not pressured; no psychomotor agitation/retardation present; thought process is a little distracted but overall organized and goal directed; Thought content is on discharge and aftercare plans; otherwise pertinent to relevant topics and without any delusional content, paranoid ideations or grandiosity; denies any SI/HI. Denies AVH and there is no evidence of perceptual disturbance. Patients insight and judgment fair. Diagnostics Vital Signs (24Hr): Vital Signs - 24 hr 11/12/24 15:45 11/12/24 20:00 11/13/24 08:00 Temperature 97.7 F 97.5 F Pulse Rate 113 H 94 86 Blood Pressure 142/99 H 133/78 103/57 L Pulse Oximetry 99 99 Oxygen Delivery Method Room Air Room Air Labs 11/10/24 08:16 11/10/24 08:16 Medications Medications Current Medications Acetaminophen (Acetaminophen 325 Mg Tablet) 650 mg PO Q6H PRN PRN Reason: Headache/Pain, Scale 1-10 Last Admin: 11/10/24 11:15 Dose: 650 mg Al Hydroxide/Mg Hydroxide (Magnesium Hydrox/Alum Hydrox 30 Ml Oral.Susp) 30 ml PO Q6H PRN PRN Reason: Heartburn/Nausea Amphetamine/Dextroamphetamine (Dextroamphetamine/Amphetamine Xr 10 Mg Cap.Er.24h) 10 mg PO DAILY [facility] Last Admin: 11/13/24 08:55 Dose: 10 mg Ascorbic Acid (Ascorbic Acid 500 Mg Tablet) 500 mg PO DAILY [facility] Last Admin: 11/13/24 08:54 Dose: 500 mg Baclofen (Baclofen 10 Mg Tablet) 10 mg PO BID [facility] Last Admin: 11/13/24 08:54 Dose: 10 mg Buspirone HCl (Buspirone Hcl 10 Mg Tablet) 10 mg PO BID [facility] Last Admin: 11/13/24 08:55 Dose: 10 mg Gabapentin (Gabapentin 300 Mg Capsule) 300 mg PO TID [facility] Last Admin: 11/13/24 08:54 Dose: 300 mg Guaifenesin (Guaifenesin 200 Mg/10 Ml 10 Ml Liquid) 10 ml PO Q6H PRN PRN Reason: Cough Last Admin: 11/12/24 20:32 Dose: 10 ml Hydroxyzine HCl (Hydroxyzine Hcl 25 Mg Tablet) 25 mg PO Q6H PRN PRN Reason: mild anxiety Last Admin: 11/11/24 12:58 Dose: 25 mg Ibuprofen (Ibuprofen 600 Mg Tablet) 600 mg PO Q8H PRN PRN Reason: wrist/hand pain Last Admin: 11/13/24 08:55 Dose: 600 mg Lidocaine (Lidocaine 4 % Patch Adh..Patch) 1 patch TRANSDERMA DAILY PRN; Protocol PRN Reason: lower back pain Loratadine (Loratadine 10 Mg Tablet) 10 mg PO DAILY [facility] Last Admin: 11/13/24 08:55 Dose: 10 mg Magnesium Hydroxide (Milk Of Magnesia 30 Ml Oral.Susp) 30 ml PO DAILY PRN PRN Reason: Constipation Nicotine (Nicotine 21 Mg Patch.Td24) 21 mg TRANSDERMA DAILY PRN PRN Reason: smoking cessation Last Admin: 11/12/24 11:20 Dose: 21 mg Nicotine Polacrilex (Nicotine Polacrilex 2 Mg Gum) 4 mg BUCCAL Q2H PRN PRN Reason: Nicotine Cravings Last Admin: 11/12/24 18:30 Dose: 2 mg Olanzapine (Olanzapine 5 Mg Tablet) 5 mg PO TID PRN PRN Reason: agitation Propranolol HCl (Propranolol Hcl 10 Mg Tablet) 10 mg PO TID [facility]; Protocol Last Admin: 11/13/24 08:58 Dose: Not Given Quetiapine Fumarate (Quetiapine Fumarate 300 Mg Tablet) 300 mg PO BEDTIME [facility] Last Admin: 11/12/24 20:40 Dose: 300 mg Sertraline HCl (Sertraline Hcl 100 Mg Tablet) 100 mg PO DAILY [facility] Last Admin: 11/13/24 08:54 Dose: 100 mg Trazodone HCl (Trazodone Hcl 50 Mg Tablet) 50 mg PO BEDTIME MRX1 PRN PRN Reason: Insomnia Last Admin: 11/11/24 21:17 Dose: 50 mg Zinc Acetate/Diphenhydramine (Diphenhydramine Hcl 2 % Cream 28 Gm Tube) 1 appl TOPICAL TID PRN; Protocol PRN Reason: Itching Allergies Allergies Allergy/AdvReac Type Severity Reaction Status Date / Time No Known Allergies Allergy Verified 11/09/24 17:21 Assessment & Plan Assessment & Plan (1) Moira: Status: Acute Code(s): F30.9 - Manic episode, unspecified (2) ADHD: Status: Acute Code(s): F90.9 - Attention-deficit hyperactivity disorder, unspecified type (3) Carpal tunnel syndrome: Status: Acute Code(s): G56.00 - Carpal tunnel syndrome, unspecified upper limb (4) MDD (major depressive disorder): Status: Acute Code(s): F32.9 - Major depressive disorder, single episode, unspecified Plan Patient is a 44-year-old female, originally from [place], with history of depression, anxiety, ADHD, methamphetamine and alcohol use disorder who presents for disorganized behavior in the face of abusing baclofen and gabapentin. Pt reports she was at sober living, having been there only 2 days and feeling stressed out; pt reports she was taking more Baclofen and gabapentin then prescribed since it made her feel good. Pt says the TV was on loudly and went down and told peers that it sounds like kids crying...and i need to get to bed... She frustrated that staff reported she said she was hearing kids screaming...no, i was not hearing things or seeing things...i said it sounds l bryant esteves word 'sounds like'... She says it's absurd that she is in the hospital. She denies that she was jumping on the bed or aggressively throwing things; she said maybe she slammed the door but she did not mean to be loud. Patient denies any history of AVH or manic type episodes or behaviors other than in the context of substance abuse. Patient did however acknowledge that perhaps feeling tired, overdosing on baclofen and gabapentin, she may have been more dysregulated and she realize. Patient wants to continue on current medication regimen. Denies trauma history; no recent drug/alcohol use. formulation/clinical reasoning: pt somewhat disorganized in speech, easily confused. Seems that perhaps she got dysregulated due to either excessive baclofen/gabapentin or w/drawal from it...which seems to be winding down at this point. Will treat for w/drawal and monitor Plan: cv q15min restart Baclofen 10mg BID to help with withdrawal BUT will then taper and dc (baclophen was using for used etoh cravings) restart Gabapentin 300mg TID to help w/ withdrawal BUT will taper and dc (Gabapentin for carpal tunnel) restart Zoloft and titrate (this was helping w/ depression/anxiety but recently changed to Cymbalta to cover for neuropathic pain; zoloft restarted in ED) Consider Naltrexone which pt said helped cravings Adderall XR 30mg (vyvanse not on formulary) Continue home med Seroqel 300mg qhs seek collateral 11/11: Continue current regimen and plans. Observe for dizziness secondary to Inderal 11/12: Continue current regimen and plans. Decreased Adderall to 10 mg. Added vitamin-C and Co Q10 11/13: pt reports good mood, though says she's frustrated with being on the unit. She shares that adderall 30mg was too much and made her feel hyperactive, but reduction to 10mg is working. Pt very much wants discharge and has a 3 day notice coming due. -discussed medications and accepts baclofen/gabapentin taper. -SW spoke briefly to collateral.. Pt in good behavioral and impulse control; she is appropriate with peers and staff. Pt not in imminent harm to self/others and appropriate to return to community for tx. Request for dc honored. Patient educated on: diagnosis and medication risk/benefits Informed Consent: understands Reason for continued inpatient stay Substantial Risk for: stable for discharge Time Spent With Patient Time: Total time managing care of this patient today ____ minutes.
[2024-11-13] MEDS: Nicotine 21 MG PATCH.TD24 TRANSDERMA (09:59)
[2024-11-13] MEDS: Nicotine Polacrilex 2 MG GUM 4 MG BUCCAL ×3 (09:59→18:12)
[2024-11-13] MEDS: diphenhydrAMINE HCl 2 % Cream 28 GM TUBE 1 APPL TOPICAL (13:15)
[2024-11-13] MEDS: Acetaminophen 325 MG TABLET 650 MG PO (14:54)
[2024-11-13 14:55] VITALS: BP 141/88; PULSE 77
[2024-11-13] MEDS: Propranolol HCL 10 MG TABLET PO (14:55)
[2024-11-13 20:00] VITALS: BP 138/77; PULSE 102; O2SAT 99
[2024-11-13] MEDS: QUEtiapine Fumarate 300 MG TABLET PO (20:52)
[2024-11-14] MEDS: Gabapentin 300 MG CAPSULE PO (08:44)
[2024-11-14] MEDS: Ascorbic Acid 500 MG TABLET PO (08:44)
[2024-11-14 08:45] VITALS: BP 136/79; PULSE 80
[2024-11-14] MEDS: Sertraline HCL 100 MG TABLET PO (08:45)
[2024-11-14] MEDS: Baclofen 10 MG TABLET PO (08:45)
[2024-11-14] MEDS: Propranolol HCL 10 MG TABLET PO (08:45)
[2024-11-14] MEDS: Loratadine 10 MG TABLET PO (08:46)
[2024-11-14] MEDS: busPIRone HCl 10 MG TABLET PO (08:46)
[2024-11-14] MEDS: Naloxone HCl Nasal TAKE HOME 4 MG SPRAY 8 MG NOSTRILALT (08:47)
[2024-11-14] MEDS: diphenhydrAMINE HCl 2 % Cream 28 GM TUBE 1 APPL TOPICAL (08:48)
[2024-11-14] MEDS: Nicotine Polacrilex 2 MG GUM 4 MG BUCCAL (08:52)
[2024-11-14] MEDS: Nicotine 21 MG PATCH.TD24 TRANSDERMA (08:53)
--- NOTE | 2024-11-14 08:58 | P.DS_ITS ---
DS: Providers Provider Date of Service: 11/14/24 Date of admission: 11/09/24 16:28 Date of discharge: 11/14/24 Primary care physician: Unknown Physician Attending physician on admission: Tobias Sanchez Consults: 11/09/24 17:21 Consult to Hospitalist Routine Comment: [place]ing [place] [facility] [place] [facility] Reason For Exam: admission physical Attending physician on discharge: Tobias Sanchez DS: Diagnosis Discharge Diagnosis (1) Moira: Status: Acute (2) ADHD: Status: Acute (3) Carpal tunnel syndrome: Status: Acute (4) MDD (major depressive disorder): Status: Acute DS: Medications Discharge Medications Home Medications: Home Medications ?Medication ?Instructions ?Recorded ?Confirmed lisdexamfetamine 40 mg capsule 40 mg PO DAILY 11/09/24 11/09/24 (Vyvanse) Previous Rx's ?Medication ?Instructions ?Recorded ascorbic acid (vitamin C) 500 mg 500 mg PO DAILY 30 days #30 tabs 11/14/24 tablet (Vitamin C) buspirone 10 mg tablet 10 mg PO BID 30 days #60 tabs 11/14/24 diphenhydramine-zinc acetate 2 1 appl topical TID PRN Itching 11/14/24 %-0.1 % topical cream (Banophen hands 3 days #28 grams Anti-Itch) hydroxyzine pamoate 25 mg capsule 25 mg PO BID PRN Anxiety 30 days 11/14/24 #90 caps loratadine 10 mg tablet 10 mg PO DAILY PRN allergy 11/14/24 symptoms 30 days #30 tabs nicotine (polacrilex) 2 mg gum 2 mg buccal Q1H PRN nicotine 11/14/24 cravings 30 days #100 ea nicotine 21 mg/24 hr daily 21 mg transdermal DAILY PRN 11/14/24 transdermal patch smoking cessation 28 days #28 ea propranolol 10 mg tablet 10 mg PO TID 30 days #90 tabs 11/14/24 quetiapine 300 mg tablet (Seroquel) 300 mg PO BEDTIME 30 days #30 tabs 11/14/24 sertraline 100 mg tablet 100 mg PO DAILY 30 days #30 tabs 11/14/24 trazodone 50 mg tablet 50 mg PO BEDTIME PRN Insomnia 30 11/14/24 days #30 tabs Mental Status Exam Mental Status Exam Narrative: Pt is alert and oriented; behavior is cooperative, friendly and calm; remains in good behavioral and impulse control and organized in speech and behavior; patient is not in distress; dressed in casual attire with adequate hygiene; mood is described as good and affect congruent; eye contact appropriate; Speech is normal rate, volume and prosody and not pressured; no psychomotor agitation/retardation present; thought process is somewhat distracted but overall organized and goal directed; Thought content is on discharge; otherwise pertinent to relevant topics and without any delusional content, paranoid ideations or grandiosity; denies any SI/HI. Denies AVH and there is no evidence of perceptual disturbance. Patients insight and judgment appear intact. Data Data Completed and Pending Completed studies during hospitalization [Text1]: 11/10/24 11/13/24 08:16 13:44 WBC 6.4 RBC 4.09 L Hgb 12.5 Hct 37.3 MCV 91.2 MCH 30.6 MCHC 33.5 RDW 14.8 Plt Count 376 MPV 9.5 Immature Gran % (Auto) 0.5 H Neut % (Auto) 40.2 L Lymph % (Auto) 34.7 [place] % (Auto) 11.8 H Eos % (Auto) 11.9 H Baso % (Auto) 0.9 Lymph # (Auto) 2.2 [place] # (Auto) 0.8 Eos # (Auto) 0.8 H Baso # (Auto) 0.1 Abs Immat Gran (auto) 0.03 Absolute Neuts (auto) 2.6 Absolute Nucleated RBC 0.000 Nucleated RBC % (auto) 0.0 Sodium 138 Potassium 4.5 Chloride 106 Carbon Dioxide 24 Anion Gap 13 BUN 16 Creatinine 0.62 Estim Creat Clear Calc TNP Estimated GFR > 60 Random Glucose 135 H Estimat Average Glucose 105 Hemoglobin A1c % 5.3 Calcium 9.0 Magnesium 1.9 Total Bilirubin 0.2 AST 26 ALT 24 Alkaline Phosphatase 56 Total Protein 7.2 Albumin 4.4 Triglycerides 130 Cholesterol 178 LDL Cholesterol, Calc 88 HDL Cholesterol 64 Coenzyme Q10 Pending TSH 4.38 H Free T4 0.92 Hold Red Top See Note DS: Summary Hospital Course Hospital Course: HPI: Patient is a 44-year-old female, originally from [place], with history of depression, anxiety, ADHD, methamphetamine and alcohol use disorder who presents for disorganized behavior in the face of abusing baclofen and gabapentin. Pt reports she was at sober living, having been there only 2 days and feeling stressed out; pt reports she was taking more Baclofen and gabapentin then prescribed since it made her feel good. Pt says the TV was on loudly and went down and told peers that it sounds like kids crying...and i need to get to bed... She frustrated that staff reported she said she was hearing kids screaming...no, i was not hearing things or seeing things...i said it sounds l bryant esteves word 'sounds like'... She says it's absurd that she is in the hospital. She denies that she was jumping on the bed or aggressively throwing things; she said maybe she slammed the door but she did not mean to be loud. Patient denies any history of AVH or manic type episodes or behaviors other than in the context of substance abuse. Patient did however acknowledge that perhaps feeling tired, overdosing on baclofen and gabapentin, she may have been more dysregulated and she realize. Patient wants to continue on current medication regimen. Denies trauma history; no recent drug/alcohol use. Hospital course/formulation/clinical reasoning: On admission, patient was friendly, cooperative and calm; she was intermittently, mildly disorganized thought process, seemingly distracted, but she was overall appropriate and organize. No SI at all. Patient denied any history of manic symptoms independent of substance abuse (though she is prescribed seroquel 300mg qhs); patient and film writer agreed that it is possible her dysregulation at the sober living home was due to excessive baclofen/gabapentin or withdrawal from it... Patient was waiting for placement in the ED and it seems that at this point this dysregulated episode is mostly resolved. Because some residual dysregulated elements remain, film writer decided to treat patient for withdrawal from both baclofen and gabapentin and monitor her for manic symptoms; patient agreed with this plan. Zoloft restarted but initially held Vyvanse. Discussed substance abuse treatment and MAT including naltrexone however patient did not want to start on new medication; gabapentin and baclofen tapered and discontinued since patient was abusing these 2 medications; regarding programming for substance abuse treatment, chewing focused on returning to the sober living house where she was recently admitted. Patient remained overall in good behavioral and impulse control. She could be somewhat energetic and still distracted in speech however this appeared to be more likely due to ADHD symptoms then moira and Adderall was started in place of Vyvanse which was not on formulary. Adderall dose initially too high and patient was hyperactive but this resolved once Adderall dose was lowered. Patient wanted discharge and had signed a 3 day notice. Attempts made to get a hold of collateral were unsuccessful. Patient remained in good behavioral and impulse control and overall organized in speech and behavior; she was appropriate with peers and staff, engaged in treatment, attending groups and co operative and calm. No psychotic symptoms at all; no manic symptoms and Patient was eating and sleeping well. Patient wanted to return to the sober living establishment where she had come from however she said if not she will find her own new program. Patient was not in imminent risk for harm to self or others; 3 day notice was coming due and patient was appropriate to return to the community for treatment. Request for discharge honored. Time spent discussing smoking cessation with patient: 3 to 10 minutes Status at Discharge Functional status at discharge: independent ambulation Overall status at discharge: patient is back to baseline Time Spent with Patient Time attestation: Total time managing care of this patient today __40__ minutes. Time spent: Greater than 30 minutes Specific discharge activities: Met with patient; discussed with team; charting; prescription Discharge Plan Discharge Anticipated Discharge Date/Time: 11/14/24 11:00 Patient Disposition: Fdc Discharge Diagnosis: Moira secondary to withdrawal in full remission; MDD Referrals: Physician,Unknown J [Primary Care Provider] - 1 Week Discharge Medications: New loratadine 10 mg Tablet 10 mg PO DAILY PRN (Reason: allergy symptoms) 30 Days Qty: 30 0RF nicotine 21 mg/24 hr Patch 24 Hour 21 mg transdermal DAILY PRN (Reason: smoking cessation) 28 Days Qty: 28 0RF Rx Instructions: remove at bedtime sertraline 100 mg Tablet 100 mg PO DAILY 30 Days Qty: 30 0RF trazodone 50 mg Tablet 50 mg PO BEDTIME PRN (Reason: Insomnia) 30 Days Qty: 30 0RF ascorbic acid (vitamin C) [Vitamin C] 500 mg Tablet 500 mg PO DAILY 30 Days Qty: 30 0RF Banophen Anti-Itch 2-0.1 % Cream 1 appl topical TID PRN (Reason: Itching hands) 3 Days Qty: 28 0RF Protocol: Apply to: Apply to: Hands Continued lisdexamfetamine [Vyvanse] 40 mg Capsule 40 mg PO DAILY quetiapine [Seroquel] 300 mg Tablet 300 mg PO BEDTIME 30 Days Qty: 30 0RF propranolol 10 mg Tablet 10 mg PO TID 30 Days Qty: 90 0RF buspirone 10 mg Tablet 10 mg PO BID 30 Days Qty: 60 0RF hydroxyzine pamoate 25 mg Capsule 25 mg PO BID PRN (Reason: Anxiety) 30 Days Qty: 90 0RF Changed nicotine (polacrilex) 2 mg Gum 2 mg BUCCAL Q1H PRN (Reason: nicotine cravings) 30 Days Qty: 100 0RF Discontinued olanzapine [Zyprexa Zydis] 5 mg Tablet,Disintegrating 5 mg PO BEDTIME baclofen 10 mg Tablet 10 mg PO TID olanzapine 5 mg Tablet,Disintegrating 5 mg PO Q6H PRN (Reason: Agitation) Discharge Orders: Discharge Order (Routine); Ordered 11/14/24 Ordered By: Tobias Sanchez Diet: Regular diet Activity on Discharge: As tolerated Stand Alone Forms: Patient Portal Discharge page, Community Support Print Language: Turkmen Care Plan Goals: Maintain mood and safe behaviors Take medications as prescribed Continue to pursue sobriety Practice coping skills Continue with outpatient providers and reach out to them as needed Health Concerns: Mood stability and behaviors Sobriety Plan of Treatment: Follow up with your PCP, psychiatric provider and other outpatient providers re garding above concerns Take medications as prescribed Assessment: Risk assessment at time of discharge:? Patient was interviewed prior to discharge and found to be fully oriented and without any SI or HI. Patient has improved insight and judgment and wants to continue treatment. Patient is not in imminent risk of harm to self or others and has a safety plan that includes presenting to the closest ER or calling 911 if feeling unsafe.? Patient has been observed closely by nursing and unit staff throughout admission; patient has not engaged in any behaviors that suggest dangerousness to self or others and has demonstrated appropriate behaviors and impulse control
[2024-11-14] MEDS: Ibuprofen 600 MG TABLET PO (09:54)
== END 2024-11-14 11:05 | disposition home or self-care (01) | DRG 754 ==
PROVIDERS: Nurse Practitioner Family; Admitting Provider Psychiatry & Neurology Psychiatry; Visit Provider Psychiatry & Neurology Psychiatry
DX: F32.9 Major depressive disorder, single episode, unspecified (principal); F10.90 Alcohol use, unspecified, uncomplicated; F19.939 Other psychoactive substance use, unspecified with withdrawal, unspecified; F90.9 Attention-deficit hyperactivity disorder, unspecified type; G56.03 Carpal tunnel syndrome, bilateral upper limbs; Z87.891 Personal history of nicotine dependence; Z59.02 Unsheltered homelessness; Z79.899 Other long term (current) drug therapy
CPT/HCPCS: 36415; 80053; 80061; 83036; 83735; 84439; 84443; 85025

== ENCOUNTER → 2024-11-09 16:28 | Outpatient (BNV) | payer BC, SELFPAY | PROVIDERS: Admitting Provider Psychiatry & Neurology Psychiatry; Visit Provider Nurse Practitioner Family | DX: R00.0 Tachycardia, unspecified (principal) | CPT/HCPCS: 99232; 99499 ==

== ENCOUNTER → 2024-11-09 16:28 | Outpatient (BNV) | payer BC, SELFPAY | PROVIDERS: Admitting Provider Psychiatry & Neurology Psychiatry; Visit Provider Psychiatry & Neurology Psychiatry | DX: F30.9 Manic episode, unspecified (principal); F90.9 Attention-deficit hyperactivity disorder, unspecified type; G56.00 Carpal tunnel syndrome, unspecified upper limb | CPT/HCPCS: 90792; 99232; 99239 ==